=== PATIENT | female | born 1960 | race Two or more races ===

== ENCOUNTER 2016-09-19 15:50 | Inpatient (IN) | payer SELFPAY ==
--- NOTE | 2016-09-20 01:21 | ER Document Report ---
ED Neuro Symptoms/Deficit <TYRELL TSANG - Last Filed: 09/20/16 05:18> - General Mode of Arrival: Ambulatory Information source: Patient, Relative, [facility] Records Notes: 55-year-old female patient comes emergency room complaining of right facial weakness, right upper extremity weakness, to the right face and right arm, and slurred speech which began sometime 11 AM and 12 noon today. Significant other reports he came home and saw her between 1:45 PM and 2 PM with the same symptoms. He gave her an aspirin to take, he had to open the bottle for her due to her right upper extremity right hand weakness. He also had open a bottle of water for her for the same reason. He then "told her to lay down, be still, and rest". He reports about an hour later she still complained of to her right arm and right face, right arm was weak and speech was slurred. He then decided to bring her to the emergency room. History significant for a stroke 5 years ago when she reports being hospitalized at the [facility] for 8 days. She does have a history of high blood pressure. She states she had a "light heart attack" in the past. She does not have a primary care provider. She does not take any medication except aspirin. She does smokes one half pack per day. She was first seen when she returned from the CT scanner. At that time her neurological exam showed some right upper extremity weakness, right facial weakness, and slurred speech. Her significant other reports it is unchanged from what he witnessed earlier at home. I was told that her symptoms completely resolved while she was in the CT scanner. I had the tech, look at the patient with me to see how she was looking when I examined her. When I returned to the room with the tech, her symptoms had again almost completely cleared with little to no facial weakness, speech not slurred, and right upper extremity strength almost back to normal. I discussed her case with the neurologist director medical economics at [facility]. He felt that given the waxing and waning of her symptoms, the time of onset, and the persistent though improved weakness in the right upper extremity that she had most likely had a stroke but should not receive TPA at this point. He did recommend that an MRI/MRA be done prior to deciding about starting heparin. Initial call to the hospitalist was made at 1820, I was informed they were not taking calls until the new shift started about 0. Initially the patient was resistant to MRI due to claustrophobia, we finally convinced her to have this done. When she arrived back from MRI about 12:20 AM , I found that her symptoms had returned to what I found when I first examined her many hours earlier. This H&P is being done in the electronic record several hours after the patient was seen due to the computer system being down and having to work with paper charts. <JOAN BARRON - Last Filed: 09/21/16 17:27> - General Chief Complaint: S/S of Possible Stroke Time Seen by Provider: 09/20/16 00:31 - Related Data Allergies/Adverse Reactions: No Known Allergies Allergy (Verified 04/16/12 20:33) Home Medications: Current Home Medications Aspirin [Faustino Chewable Aspirin] 81 mg PO DAILY 09/20/16 [History] Past Medical History - General Information source: Patient, [facility] Records - Social History Smoking Status: Current Every Day Smoker Cigarette use (# per day): Yes - 1/2 PPD Chew tobacco use (# tins/day): No Smoking Education Provided: No Frequency of alcohol use: None Drug Abuse: None Lives with: Friend Family History: Reviewed & Not Pertinent - Past Medical History Cardiac Medical History: Reports: Hx Heart Attack - 2011, Hx Hypertension Pulmonary Medical History: Reports: None EENT Medical History: Reports: None Neurological Medical History: Reports: Hx Cerebrovascular Accident - 2011 Endocrine Medical History: Reports: None Renal/ Medical History: Reports: None GI Medical History: Reports: None Musculoskeltal Medical History: Reports None Skin Medical History: Reports None Psychiatric Medical History: Reports: None Past Surgical History: Reports: Hx Section - Immunizations Immunizations up to date: Yes Hx Diphtheria, Pertussis, Tetanus Vaccination: No <JOAN BARRON - Last Filed: 09/21/16 17:27> Review of Systems - Review of Systems Constitutional: No symptoms reported EENT: No symptoms reported Cardiovascular: No symptoms reported Respiratory: No symptoms reported Gastrointestinal: No symptoms reported Genitourinary: No symptoms reported Female Genitourinary: Post menopausal Musculoskeletal: No symptoms reported Skin: No symptoms reported Hematologic/Lymphatic: No symptoms reported Neurological/Psychological: See HPI <JOAN BARRON - Last Filed: 09/21/16 17:27> Physical Exam - Vital signs Vitals: Pulse Resp BP Pulse Ox 78 18 141/80 H 98 09/20/16 01:43 09/20/16 01:43 09/20/16 01:43 09/20/16 01:43 <TYRELL TSANG - Last Filed: 09/20/16 05:18> - Vital signs Interpretation: Hypertensive - General General appearance: Alert In distress: None - HEENT Head: Normocephalic, Atraumatic Eyes: Normal Pupils: PERRL Mucous membranes: Normal Neck: Normal. No: Carotid bruit - Respiratory Respiratory status: No respiratory distress Breath sounds: Normal - Cardiovascular Rhythm: Regular Heart sounds: Normal auscultation Murmur: No - Abdominal Inspection: Normal Bowel sounds: Normal Tenderness: Nontender - Back Back: Normal - Extremities General upper extremity: Normal inspection General lower extremity: Normal inspection - Neurological Neuro grossly intact: No Cognition: Normal Orientation: AAOx4 Cranial nerves: Facial palsy. No: Gaze palsy, Sensory deficit Cerebellar coordination: Heel-madrigal - Normal bilateral, Other - Slight difficulty in finger to nose on the right hand Motor strength normal: LUE, LLE, RLE. No: RUE Additional motor exam normals: Weakness - There is a 3/4 weakness in the RUE Babinski reflex: Normal (flexor plantar) Sensory: Normal - Psychological Associated symptoms: Normal affect, Normal mood - Skin Skin Temperature: Warm Skin Moisture: Dry Skin Color: Normal <JOAN BARRON - Last Filed: 09/21/16 17:27> Course - Re-evaluation Re-evalutation: 09/20/16 05:[address] Oconnor. He will admit the patient as a full admission to telemetry. - Vital Signs Vital signs: Temp Pulse Resp BP Pulse Ox 98.6 F 64 14 134/94 H 94 09/20/16 02:02 09/20/16 02:02 09/20/16 02:02 09/20/16 02:02 09/20/16 02:02 - Laboratory Result Diagrams: 09/19/16 16:20 09/19/16 16:20 <TYRELL TSANG - Last Filed: 09/20/16 05:18> - Re-evaluation Re-evalutation: 09/20/16 01:[address] [facility]. At this time I am waiting for the hospitalist to call back about admission. The patient continues to have the right facial weakness, slightly slurred speech, and right upper extremity weakness. - Laboratory Result Diagrams: 09/21/16 08:40 09/20/16 11:24 - Diagnostic Test Radiology reviewed: Reports reviewed - CT scan nothing acute. MRA/[place] of [place] is unremarkable. MRI of the brain shows small to moderate subacute ischemia of the left posterior parietal lobe with an underlying chronic component. This is located adjacent to an area of encephalomalacia prior CVA - EKG Interpretation by Md EKG shows normal: Sinus rhythm, [place], QRS Complexes. abnormal: Intervals - Borderline prolonged QT and, ST-T Waves - ST elevation due to LVH Rate: Normal - 97 Rhythm: NSR Voltage: Consistant with LVH Heart block present: 1st Degree When compared to previous EKG there are: Previous EKG unavailable - Transfer of Care Care transferred to following provider: Dr. Tsang Notes: 09/20/16 02:[address] Oconnor to call back to accept and manage the pt. <JOAN BARRON - Last Filed: 09/21/16 17:27> Critical Care Note - Critical Care Note Total time excluding time spent on procedures (mins): 65 <JOAN BARRON - Last Filed: 09/21/16 17:27> ED Alteplase Inc/Exc Criteria - Inclusion Criteria: 1: Patient presented to ED within 3 hours of acute ischemic stroke symptom onset ? -: No 2: Did baseline CT exclude intracranial hemorrhage and/or other risk factors? 3: Is the age of the patient 18 years of age or greater? : If any of the above questions are answered "NO" then stop, patient is not a candidate for Alteplase, : If all of the above questions are answered "YES" then continue with Exclusion Criteria. - Exclusion Criteria: 1: Is there evidence of intracranial hemorrhage on baseline CT? 2: Is there suspicion of subarachnoid hemorrhage (even if CT negative)? 3: Is there a history of serious head trauma, recent previous stroke or [place] within 3 months? 4: Does the patient have a clinical presentation consistent with [place] or post-[place] pericarditis? 5: Is there history of intracranial hemorrhage? 6: On repeated measurement is Systolic BP greater than 185mmHg or Diastolic BP greater that 110 mmHg and is aggressive treatment needed to reduce blood pressure to these limits (e.g. constant infusion of an anti-hypertensive)? 7: Did the patient awake with stroke symptoms? 8: Has the patient had a lumbar puncture or an arterial puncture at a non- compressile site within 7 days? 9: With in the last 14 days did the patient have surgery or major trauma? 10: Is the patient or less than 2 weeks? 11: Was there any active bleeding or acute trauma? 12: Does the patient have intracranial neoplasm, arteriovenous malformation or aneurysm? 13: Does the patient have abnormal glucose (less than 50 or greater than 400mg/ dl)? Record glucose in Comment. 14: Patient has rapidly improving symptoms at the time Alteplase is to be Administered. -: Yes 15: Does the patient have any risks for bleeding, including but not limited to: a.: Current use of Coumadin with PT greater than 15 seconds or INR greater than 1.7. b.: Current use of Pradaxa (Dabigatran). c.: Heparin administereed within the past 48 hours and PTT elevated. d.: Platelet count less than 100,000/mm. e.: Major surgery or serious trauma within 14 days. f.: Gastrointestinal or gynecological urinary bleeding within 14 days. g.: Myocardial Infarction ([place]) within 3 months. : If the answer to any of the above questions is "YES" then stop, the patient is not a candidate for Alteplase. : If the answer to all of the above questions is "NO" then the patient may be eligible for the Administration of Alteplase. : If the patient is noted to have seizure activity at onset of Stroke symptoms; Consult Neurologist for further evaluation. - Diagnosis of TIA: -: Patient presented with transient symptoms that are now resolved and no other neurologic findings are currently present. List symptoms in comments. -: No -: Patient is NOT a candidate for tPA. -: Yes -: ____(put name in comment) has been consulted for admission and continued evaluation of risk factor assessment. Comment: Dr. Oconnor <JOAN BARRON - Last Filed: 09/21/16 17:27> ED NIH Stroke Scale - NIH Stroke Scale *: 1. NIH scale should be completed with appropriate accompanying assessment tools. *: 2. The NIH should reflect what the patient is capable of doing and should not be coached by the clinician. 1a. Level of Consciousness: 0=Alert;keenly responsive -: 1=Drowsy -: 2=Obtunded -: 3=Coma/unresponsive or reflex to noxious stimuli. 1a. Responses: 0 1b. Orientation Questions: a. What month is it? -: b. How old are you? -: 0=Answers both questions correctly. -: 1=Answers one question correctly or patient is intubated or has orotracheal trauma. -: 2=Answers neither question correctly. 1b. Responses: 0 1c. Response to commands: a. Open and close eyes? -: b. Soft Work Wrapper Layer And Examiner and release hand? -: Credit is given despite weakness. Demonstration of task is permitted. Substitute command if hands cannot be used. -: 0=Performs both tasks correctly -: 1=Performs one task correctly -: 2=Performs neither task correctly 1c. Responses: 0 2. Gaze: Establish eye contact and instruct patient to "Follow my finger" -: 0=Normal -: 1=Partial gaze palsy. Gaze is abnormal in one or both eyes, but where forced deviation or total gaze paresis is not present. -: 2=Forced deviation or total gaze paresis. 2. Responses: 0 3. Visual Weber: Sees fingers in all four quadrants. -: 0=No visual loss. -: 1=Partial hemianopsia. -: 2=Complete hemianopsia. -: 3=Bilateral hemianopsia (including Cortical blindness) 3. Responses: 0 4. Facial Movement: Instruct patient to: -: a. Show me your teeth -: b. Raise your eyebrows -: c. Close your eyes -: d. Smile -: 0=Normal symmetrical movement -: 1=Minor paralysis (flattened nasolabial fold, asymmetry on smiling). -: 2=Partial paralysis (total or near total paralysis of lower face). -: 3=Complete paralysis of upper and lower face 4. Responses: 1 5. Motor functions (left arm): Alternate sides and extend each arm with palms down (90 degrees if sitting or 45 degrees for supine). -: 0=No drift;limb holds for full 10 seconds. -: 1=Drift; limb holds but drifts down before full 10 seconds, but does not hit bed. -: 2=Some effort against gravity; limb cannot get to or maintain position. -: 3=No effort against gravity; limb falls. -: 4=No movement. -: UN=Amputation, joint fusion, explain in comments. 5. Responses (left arm): 0 5. Motor Functions (right arm): Alternate sides and extend each arm with palms down (90 degrees if sitting or 45 degrees for supine). -: 0=No drift;limb holds for full 10 seconds. -: 1=Drift; limb holds but drifts down before full 10 seconds, but does not hit bed. -: 2=Some effort against gravity; limb cannot get to or maintain position. -: 3=No effort against gravity; limb falls. -: 4=No movement. -: UN=Amputation, joint fusion, explain in comments. 5. Responses (right arm): 1 6. Motor Functions (left leg): With patient lying supine, alternate sides and extend each leg (30 degrees always while supine). -: 0=No drift, leg holds position for full 5 seconds -: 1=Drift; leg falls before full 5 seconds but does not hit bed. -: 2=Some effort against gravity, leg falls to bed but some effort against gravity. -: 3=No effort against gravity, leg falls to bed immediately. -: 4=No movement. -: UN=Amputation, joint fusion; explain in comments. 6. Responses (left leg): 0 6. Motor Functions (right leg): With patient lying supine, alternate sides and extend each leg (30 degrees always while supine). -: 0=No drift, leg holds position for full 5 seconds -: 1=Drift; leg falls before full 5 seconds but does not hit bed. -: 2=Some effort against gravity, leg falls to bed but some effort against gravity. -: 3=No effort against gravity, leg falls to bed immediately. -: 4=No movement. -: UN=Amputation, joint fusion; explain in comments. 6. Responses (right leg): 0 7. Limb Ataxia: With eyes open instruct patient to: -: a. "Touch your finger to your nose". -: b. "Touch your heel to your madrigal" -: 0=Absent -: 1=Present in one limb. -: 2=Present in two limbs. -: UN=Amputation or joint fusion; explain in comments. 7. Responses: 1 7. If ataxia present choose as appropriate: Right arm 8. Sensory: Test sensation using pinprick or noxious stimuli. Test as many body parts as possible. -: 0=Normal;no sensory loss -: 1=Mile to moderate sensory loss (patient feels pin prick but is less sharp on affected side). -: 2=Severe or total sensory loss. 8. Responses: 0 9. Best Language: Instruct patient to: -: a. "Describe what you see in this picture." -: b. "Name the items in this picture." -: c. "Read these sentences." -: 0=No aphasia, normal -: 1=Mild to moderate aphasia. -: 2=Severe aphasia -: 3=Mute, global aphasia, no usable speech or auditory comprehension. 9. Responses: 0 10. Articulation, Dysarthia: Instruct patient to: -: "Read these words" or "Repeat these words" -: 0=Normal -: 1=Mild to moderate; patient may slur some words but can be understood without difficulty. -: 2=Severe; patients speech so slurred as to be unintelligible in the absence of dysphasia. -: UN=Intubated or other physical barrier, explain in comments. 10. Responses: 0 11. Extinction or inattention: 0=No abnormality -: 1= Visual, tactile, auditory, spatial, or personal inattention or extinction to bilateral simulation in one or the sensory modalities. -: 2=Profound violet-inattention or violet-inattention to more than one modality; does not recognize own hand. 11. Responses: 0 Total Score: 3 <JOAN BARRON - Last Filed: 09/21/16 17:27> Discharge - Discharge Admitting Provider: Dr. Oconnor Unit Admitted: Telemetry <TYRELL TSANG - Last Filed: 09/20/16 05:18> <JOAN BARRON - Last Filed: 09/21/16 17:27> - Discharge Clinical Impression: Acute cerebrovascular accident (CVA) Condition: Stable Disposition: ADMITTED INPATIENT
[2016-09-20] MEDS ORDERED: DEXTROSE 50%-WATER 25 GM/50 ML DISP.SYRIN IV PRN ×2 (07:31)
[2016-09-20] MEDS ORDERED: DEXTROSE 40% GEL 15 GM TUBE PO PRN ×2 (07:31)
[2016-09-20] MEDS ORDERED: GLUCAGON,HUMAN RECOMB 1 MG INJ SUBCUT PRN (07:31)
[2016-09-20] MEDS ORDERED: ACETAMINOPHEN 650 MG SUPP.RECT PR PRN (08:14)
[2016-09-20] MEDS ORDERED: NORMAL SALINE 1000 ML 1,000 ML IV PRN ×2 (08:14→13:25)
--- NOTE | 2016-09-20 08:55 | PDOC H&P ---
History of Present Illness Admission Date/PCP: 09/20/16 06:00 PCP None Patient complains of: stroke symptoms History of Present Illness: KIM CARLSON is a 55 year old [place] female with underlying hypertension, half pack a day smoking, anxiety, history of a "slight" myocardial infarction in the past, along with history of a stroke 5 years ago that temporarily left her with right-sided symptoms, which have since resolved, who presents to the emergency room for evaluation of above complaints. Patient has been discussed with emergency room physician who evaluated the patient, along with the emergency room physician who accepted the patient, with the initial evaluating emergency room physician having finished his shift. Around noon on the , patient began experiencing right facial and upper and lower extremity weakness, along with paresthesias of the same areas, and slurred speech. Symptoms persisted through the early afternoon, reportedly confirmed by a "significant other," according to the emergency room physician notes. She was given an aspirin and told to take a drink of water and lay down and rest. When she arose 1 hour later with similar symptoms, she was taken to the emergency room. Patient reportedly has had waxing and waning symptoms over the next several hours, with initial emergency room physician discussion concerning the patient by phone with the on-call neurologist at [facility]. Initial thoughts were to heparinize the patient, but decision was eventually made not to proceed with this. She is currently resting quietly, still complaining of some right sided numbness , tingling, and weakness. She did experience one episode of nausea and vomiting shortly after arrival in the emergency room, but none since then. She denies headache chest or abdominal pain, diarrhea or dysuria, fever or chills. No history of seizure. Laboratory results are pending due to computer system at our facility being down for an extended period of time yesterday. X-ray summary results are listed below, with full report(s) reviewed. EKG reviewed. No prior tracing available for comparison. Social history/personal habits: Single. Lives alone. Has children. Half pack of cigarettes per day. 2-3 beers a day. No illicit drug use. NKDA. Home medications initially autopopulated into [employer] may not accurately reflect patient's true medications, dosages, and/or frequencies. Patient states she only takes a baby aspirin daily. No other medications. REVIEW OF SYSTEMS: Constitutional: No fever or chills. Eyes: Wears glasses. ENT: No swallowing problems or complaints. No hearing problems or complaints. Pulmonary: No current complaints. Cardiovascular: No current complaints, including chest pain. Gastrointestinal: See history and present illness. Skin: No current complaints, including rashes. Hematologic: No unusual easy bruising or bleeding. Neurologic: See history and present illness. Musculoskeletal: No current complaints, including painful joints. Psychiatric: Mild Anxiety. Endocrine: No current complaints, including polyuria. Genitourinary: No current complaints, including dysuria. 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 5 feet 2 inches tall. Weight is not recorded on the chart. Temperature 98.6. Pulse 86 and regular. Blood pressure 139/99. 97% saturation on room air. Respirations are 24 and unlabored. Slightly overweight otherwise well-nourished well-developed -[place] female appearing approximately her stated age. Initially asleep, but awakens easily. Cooperative. Mildly anxious. No agitation. Skin is warm and dry. No grossly obvious evidence of rash in areas of skin examined. No subcutaneous nodules palpated. ENT: Hearing grossly normal to normal conversation. Tongue midline on protrusion pink and slightly moist. Eyes: No scleral icterus. Pupils equal and reactive to light at 4 mm. [place] conjunctivae. Neck is supple and nontender to gentle active range of motion and palpation. Midline trachea. No palpable thyroid nodule mass enlargement or tenderness. Lymphatic: No palpable cervical or clavicular nodes. Neck and lymphatic exams limited by patient body habitus. Psychiatric: Reasonable insight into acute and chronic medical issues. Oriented to time location and why here. Lungs: Auscultation reveals clear and equal breath sounds bilaterally. No use of accessory respiratory muscles. Cardiovascular: Heart regular rate and rhythm, without gallop murmur or rub. No carotid or abdominal aortic bruits. No ankle or pedal edema. Faintly palpable dorsalis pedis pulses. Abdomen: soft, slightly obese, nontender with positive bowel sounds. Unable to adequately evaluate abdomen for masses or organomegaly due to body habitus. Extremities: Feet are warm and dry. No calf tenderness to compression. No grossly obvious visual evidence of calf swelling. Gentle manipulation of lower extremities fails to reveal any obvious evidence of injury or instability to knees hips or ankles. Neurologic: Cranial Nerves II through XII are grossly intact, with the exception of mild right facial droop, noticeable particularly when she smiles. Mild dysarthria.. Light touch intact at left face, upper and lower extremities ; decreased on the right side of her face, upper and lower extremities. Motor function of major muscle groups left upper and lower extremities 5 over 5; subtle weakness present on the right, but still noticeable, when compared to similar muscle groups on the left. Patellar reflexes absent. Absent Babinski. Past Medical History Cardiac Medical History: Reports: Myocardial Infarction - 2011, Hypertension Denies: Congestive Heart Failure, DVT, Hyperlipidema, Pulmonary Embolism Pulmonary Medical History: Reports: None Denies: Asthma, Chronic Obstructive Pulmonary Disease (COPD), Tuberculosis EENT Medical History: Reports: None, Eyes - Reading glasses Denies: Ears, Throat Neurological Medical History: Reports: Ischemic CVA - 2011, without residual after effects. Denies: Hemorrhagic CVA, Seizures Endocrine Medical History: Denies: Diabetes Mellitus Type 1, Diabetes Mellitus Type 2, Hyperthyroidism, Hypothyroidism Renal/ Medical History: Reports: None GI Medical History: Denies: Cirrhosis, Gastroesophageal Reflux Disease, Hepatitis, Peptic Ulcer Disease Musculoskeltal Medical History: Denies: Arthritis Skin Medical History: Denies: Eczema, Psoriasis Psychiatric Medical History: Reports: Alcohol Dependency - 2-3 beers a day., General Anxiety Disorder, Tobacco Dependency Denies: Depression, Substance Abuse Hematology: Reports: None Infectious Medical History: Denies: Hepatitis B, Hepatitis C Past Surgical History Past Surgical History: Reports: Section Social History Information Source: Patient, Emergency Med Personnel, [facility] Records Lives with: Alone Smoking Status: Current Every Day Smoker Frequency of Alcohol Use: Social Hx Recreational Drug Use: No Drugs: None Hx Prescription Drug Abuse: No - Advance Directive Resuscitation Status: Full Code Surrogate healthcare decision maker:: Her children Family History Family History: Reviewed & Not Pertinent Parental Family History Reviewed: Yes - Uncertain cause of father's ; mother of hypertension. Children Family History Reviewed: Yes - Healthy Sibling(s) Family History Reviewed.: Yes - Healthy Medication/Allergy Home Medications: Aspirin [Faustino Chewable Aspirin] 81 mg PO DAILY 09/20/16 Allergies/Adverse Reactions: No Known Allergies Allergy (Verified 04/16/12 20:33) Physical Exam Vital Signs: Temp Pulse Resp BP Pulse Ox 98.2 F 71 20 139/92 H 95 09/20/16 07:14 09/20/16 07:14 09/20/16 07:14 09/20/16 07:14 09/20/16 07:14 Results Impressions: Brain MRI with MRA 09/19/16 00:00 IMPRESSION: NORMAL MRA OF THE [place]. Chest X-Ray 09/19/16 00:00 IMPRESSION: Stable moderate cardiac silhouette enlargement. Head MRI 09/19/16 00:00 IMPRESSION: Small to moderate subacute ischemia of the left posterior parietal lobe, with underlying chronic component. Assessment & Plan - Diagnosis (1) Acute cerebrovascular accident (CVA) Is this a current diagnosis for this admission?: YesPlan: Patient will be admitted under CVA/TIA protocol. Multiple imaging procedures, intracranial, vascular, and cardiac. lipid panel. Permissive hypertension. Patient is a full code. I have strongly urged patient not to get out of bed without calling nursing staff, to avoid a fall with injury. Knee high SCDs for DVT prophylaxis, along with subcutaneous heparin. Impression and plans were discussed with patient, who concurs. Time spent in evaluation and management of patient: 64 minutes (2) Arm paresthesia, right Is this a current diagnosis for this admission?: Yes (3) Dysarthria Is this a current diagnosis for this admission?: Yes (4) Facial droop Is this a current diagnosis for this admission?: Yes (5) Right hemiparesis Is this a current diagnosis for this admission?: Yes (6) Right leg paresthesias Is this a current diagnosis for this admission?: Yes (7) HTN (hypertension) Qualifiers: Hypertension type: essential hypertension Qualified Code(s): I10 - Essential (primary) hypertension Is this a current diagnosis for this admission?: YesPlan: Permissive hypertension. - Inpatient Certification Based on my medical assessment, after consideration of the patient's comorbidities, presenting symptoms, or acuity I expect that the services needed warrant INPATIENT care.: Yes I certify that my determination is in accordance with my understanding of Medicare's requirements for reasonable and necessary INPATIENT services [42 CFR 412.3e].: Yes Medical Necessity: Need Close Monitoring Due to Risk of Patient Decompensation, Need For Continuous Telemetry Monitoring, Need for Neurological Checks, Risk of Complication if Not Cared For in Hospital Post Hospital Care: D/C or Transfer Summary
[2016-09-20 09:36] LABS: BLOOD UREA NITROGEN 10 mg/dL (7-20); CALCIUM 10.4 mg/dL (8.4-10.2); CREATININE RESULT 0.67 mg/dL (0.52-1.25); GLUCOSE 84 mg/dL (75-110)
[2016-09-20 09:37] LABS: ANION GAP 11 (5-19); CARBON DIOXIDE 19 mmol/L (22-30); CHLORIDE 110 mmol/L (98-107); POTASSIUM 4.1 mmol/L (3.6-5.0); SODIUM 140.3 mmol/L (137-145)
[2016-09-20 09:38] LABS: ALANINE AMINOTRANSFERASE 16 U/L (9-52); ALKALINE PHOSPHATASE 99 U/L (38-126); ASPARTATE AMINO TRANSFERASE 22 U/L (14-36); BILIRUBIN,DIRECT 0.6 mg/dL (0.0-0.4); BILIRUBIN,TOTAL 1.3 mg/dL (0.2-1.3)
[2016-09-20 09:39] LABS: CREATINE KINASE 59 U/L (30-135); TOTAL PROTEIN 7.3 g/dL (6.3-8.2)
[2016-09-20 09:40] LABS: CREATINE KINASE MB 0.39 ng/mL (<4.55)
[2016-09-20 09:43] LABS: TROPONIN I 0.04 ng/mL
[2016-09-20 09:47] LABS: PARTIAL THROMBOPLASTIN TIME 31.1 SEC (23.5-35.8)
[2016-09-20 09:49] LABS: ABSOLUTE EOSINOPHILS # (AUTO) 0.1 10^3/uL (0.0-0.6); ABSOLUTE LYMPHOCYTES (AUTO) 1.7 10^3/uL (0.5-4.7); ABSOLUTE MONOCYTES (AUTO) 0.5 10^3/uL (0.1-1.4); ABSOLUTE NEUT (AUTO) 1.9 10^3/uL (1.7-8.2); BASOPHILS % (AUTO) 0.9 % (0-2); EOSINOPHILS % (AUTO) 1.4 % (0-6); HEMATOCRIT 53.7 % (36.0-47.0); HEMOGLOBIN 17.1 g/dL (12.0-15.5); HGB HCT DIFFERENCE -2.4; LYMPHOCYTES % (AUTO) 40.2 % (13-45); MEAN CORPUSCULAR HEMOGLOBIN 27.2 pg (27.0-33.4); MEAN CORPUSCULAR HGB CONC 31.9 g/dL (32.0-36.0); MEAN CORPUSCULAR VOLUME 85 fl (80-97); MONOCYTES % (AUTO) 11.1 % (3-13); RED CELL DISTRIBUTION WIDTH 16.2 % (11.5-14.0); SEGMENTED NEUTROPHILS % (AUTO) 46.4 % (42-78); WHITE BLOOD COUNT 4.1 10^3/uL (4.0-10.5)
[2016-09-20] MEDS ORDERED: ASPIRIN 300 MG SUPP, RECTAL PR SCH (10:00)
[2016-09-20] MEDS ORDERED: ASPIRIN 81 MG TABLET, CHEWABLE PO SCH ×2 (10:00)
[2016-09-20] MEDS: ASPIRIN 325 MG TABLET PO SCH (10:21)
[2016-09-20] MEDS: HEPARIN SOD (PORCINE) 5,000 UNIT/ML 1 ML SYRINGE SUBCUT SCH ×2 (10:22→22:09)
--- NOTE | 2016-09-20 10:34 | EKG REPORT ---
SEVERITY:- ABNORMAL ECG - SINUS RHYTHM LEFT VENTRICULAR HYPERTROPHY NONSPECIFIC T ABNORMALITIES, INFERIOR LEADS BORDERLINE PROLONGED QT INTERVAL : Confirmed by: Anna Christy MD 20-Sep-2016 10:33:50
--- NOTE | 2016-09-20 10:35 | EKG REPORT ---
SEVERITY:- ABNORMAL ECG - SINUS RHYTHM VENTRICULAR PREMATURE COMPLEX FIRST DEGREE AV BLOCK LEFT VENTRICULAR HYPERTROPHY ANTERIOR ST ELEVATION, PROBABLY DUE TO LVH BORDERLINE PROLONGED QT INTERVAL : Confirmed by: Anna Christy MD 20-Sep-2016 10:33:59
[2016-09-20 12:00] LABS: PROTHROMBIN TIME 12.7 SEC (11.4-15.4)
[2016-09-20 12:01] LABS: PARTIAL THROMBOPLASTIN TIME 32.3 SEC (23.5-35.8)
[2016-09-20 12:05] LABS: ALANINE AMINOTRANSFERASE 21 U/L (9-52); ALBUMIN 4.1 g/dL (3.5-5.0); ALKALINE PHOSPHATASE 109 U/L (38-126); ANION GAP 13 (5-19); ASPARTATE AMINO TRANSFERASE 22 U/L (14-36); BILIRUBIN,DIRECT 0.3 mg/dL (0.0-0.4); BILIRUBIN,TOTAL 1.7 mg/dL (0.2-1.3); BLOOD UREA NITROGEN 9 mg/dL (7-20); CALCIUM 10.5 mg/dL (8.4-10.2); CARBON DIOXIDE 19 mmol/L (22-30); CHLORIDE 109 mmol/L (98-107); CHOLESTEROL 263.13 mg/dL (0-200); CREATININE RESULT 0.66 mg/dL (0.52-1.25); Direct HDL 90 mg/dL (>40); GLUCOSE 134 mg/dL (75-110); POTASSIUM 3.9 mmol/L (3.6-5.0); SODIUM 141.3 mmol/L (137-145); TOTAL PROTEIN 7.4 g/dL (6.3-8.2); TRIGLYCERIDES 84 mg/dL (<150)
[2016-09-20 12:11] LABS: ABSOLUTE BASOPHILS # (AUTO) 0.1 10^3/uL (0.0-0.2); ABSOLUTE EOSINOPHILS # (AUTO) 0.1 10^3/uL (0.0-0.6); ABSOLUTE LYMPHOCYTES (AUTO) 1.6 10^3/uL (0.5-4.7); ABSOLUTE MONOCYTES (AUTO) 0.3 10^3/uL (0.1-1.4); ABSOLUTE NEUT (AUTO) 1.9 10^3/uL (1.7-8.2); BASOPHILS % (AUTO) 1.6 % (0-2); EOSINOPHILS % (AUTO) 1.8 % (0-6); HEMOGLOBIN 18.1 g/dL (12.0-15.5); HGB HCT DIFFERENCE -1.7; LYMPHOCYTES % (AUTO) 41.4 % (13-45); MEAN CORPUSCULAR HEMOGLOBIN 27.4 pg (27.0-33.4); MEAN CORPUSCULAR HGB CONC 32.3 g/dL (32.0-36.0); MEAN CORPUSCULAR VOLUME 85 fl (80-97); MONOCYTES % (AUTO) 6.4 % (3-13); RED CELL DISTRIBUTION WIDTH 16.1 % (11.5-14.0); SEGMENTED NEUTROPHILS % (AUTO) 48.8 % (42-78)
[2016-09-20 12:16] LABS: DIRECT LDL 142 mg/dL (<100)
--- NOTE | 2016-09-20 16:38 | XCELERA REPORT ---
[address] [address] Transthoracic Echocardiogram Report Name: KIM ARRIAZA Age: 55 yrs Gender: Female : 1960 Patient Status: Inpatient Patient Location: \S\12\S\A Study Date: 09/20/2016 02:11 PM Height: 62 in Weight: 150 lb BSA: 1.7 m2 Procedure: A complete two-dimensional transthoracic echocardiogram was performed (2D, M-mode, spectral and color flow Doppler). The study was technically adequate with some images being suboptimal in quality. Reason For Study: RESULTS TO DAY HOSPITALIST Ordering Physician: KATHERINE MELISSA Performed By: Jeffry Rubalcava Interpretation Summary Left ventricular systolic function is severely reduced. The Ejection Fraction estimate is 20-25% Doppler measurements suggest pseudonormalized left ventricular relaxation, which is associated with grade II/IV or mild to moderate diastolic dysfunction There is borderline concentric left ventricular hypertrophy. The left ventricle is mildly dilated. There is severe global hypokinesis of the left ventricle. The right ventricular systolic function is normal. The left atrial size is normal. The right atrium is normal in size There is no mitral valve stenosis. There is a mild amount of mitral regurgitation No aortic regurgitation is present. There is no aortic valve stenosis There is a mild amount of tricuspid regurgitation There is moderate pulmonary hypertension by echo Right ventricular systolic pressure is estimated to be elevated at 40- 50mmHg. The aortic root is not well visualized. The inferior vena cava appeared normal and decreased > 50% with respiration (RAP 5-10 mmHg) There is no pericardial effusion. Consider TED if clinically indicated. May consider mobile cardiac telemetry monitoring (MCT) for ruling out transient AFIB. MMode/2D Measurements \T\ Calculations RVDd: 1.8 cm LVIDd: 5.9 cm FS: 5.4 % Ao root diam: IVSd: 0.83 cm LVIDs: 5.6 cm EDV(Teich): 2.7 cm LVPWd: 0.94 cm 172.8 ml Ao root area: ESV(Teich): 152.2 ml 5.6 cm2 EF(Teich): 11.9 % LA dimension: 3.2 cm LVLd ap4: 8.4 cm SV(MOD-sp4): EDV(MOD-sp4): 22.0 ml 186.0 ml LVLs ap4: 7.7 cm ESV(MOD-sp4): 164.0 ml EF(MOD-sp4): 11.8 % Doppler Measurements \T\ Calculations MV E max elena: MV P1/2t max elena: Ao V2 max: LV V1 max P.0 cm/sec 36.2 cm/sec 90.6 cm/sec 1.8 mmHg MV A max elena: MV P1/2t: 56.1 msec Ao max PG: LV V1 max: 54.8 cm/sec MVA(P1/2t): 3.9 cm2 3.3 mmHg 67.5 cm/sec MV E/A: 0.68 MV dec slope: 188.9 cm/sec2 PA V2 max: PI end-d elena: TR max elena: RAP systole: 58.2 cm/sec 127.6 cm/sec 261.0 cm/sec 10.0 mmHg PA max PG: TR max P.4 mmHg 27.6 mmHg RVSP(TR): 37.6 mmHg Left Ventricle The left ventricle is mildly dilated. There is borderline concentric left ventricular hypertrophy. Left ventricular systolic function is severely reduced. The Ejection Fraction estimate is 20-25%. Doppler measurements suggest pseudonormalized left ventricular relaxation, which is associated with grade II/IV or mild to moderate diastolic dysfunction. There is severe global hypokinesis of the left ventricle. Right Ventricle The right ventricle is grossly normal size. There is normal right ventricular wall thickness. The right ventricular systolic function is normal. Atria The right atrium is normal in size. The left atrial size is normal. Interarterial septum not well visualized and not well dopplered. Cannot comment on ASD/PFO presence. Mitral Valve The mitral valve leaflets are sclerotic, but show no functional abnormalities. There is no mitral valve stenosis. There is a mild amount of mitral regurgitation. Aortic Valve The aortic valve is grossly normal. There is no aortic valve stenosis. No aortic regurgitation is present. Tricuspid Valve The tricuspid valve is not well visualized secondary to technical limitations. There is no tricuspid stenosis. There is a mild amount of tricuspid regurgitation. There is moderate pulmonary hypertension by echo. Right ventricular systolic pressure is estimated to be elevated at 40- 50mmHg. Pulmonic Valve The pulmonic valve is not well visualized. Great Vessels The aortic root is not well visualized. The inferior vena cava appeared normal and decreased > 50% with respiration (RAP 5-10 mmHg). Effusions There is no pericardial effusion. Incidental Findings Consider TED if clinically indicated. May consider mobile cardiac telemetry monitoring (MCT) for ruling out transient AFIB. : KATHERINE MELISSA > Jennyfer Russell
[2016-09-20 16:42] LABS: AMORPHOUS SEDIMENT,URINE TRACE /HPF; APPEARANCE,URINE CLOUDY; BILIRUBIN,URINE NEGATIVE (NEGATIVE); GLUCOSE, URINE NEGATIVE (NEGATIVE); KETONES,URINE TRACE mg/dL (NEGATIVE); LEUKOCYTE ESTERASE,URINE NEGATIVE (NEGATIVE); NITRITE,URINE NEGATIVE (NEGATIVE); PROTEIN,URINE NEGATIVE (NEGATIVE); URINE SPECIFIC GRAVITY 1.017; UROBILINOGEN,URINE NEGATIVE mg/dL (<2.0)
--- NOTE | 2016-09-20 16:43 | PROGRESS NOTE E ---
Progress Note NAME: KIM ARRIAZA : 1960 AGE: 55Y DATE: 09/20/2016 ROOM: ED12 SUBJECTIVE: The patient is currently lying in bed. The patient is still having right-sided facial droop and weakness, but the patient denies any difficulty swallowing. The patient states that over the past couple of days that she has been not very thirsty and has not consumed a lot of water. The patient denies any nausea or vomiting, no diarrhea, shortness of breath, dizziness, chest pain, no fever or chills. The patient has been afebrile. Blood pressure has been in a good range, and the patient does not voice any other concerns at this time. REVIEW OF SYSTEMS: Rest of review of systems is negative. MEDICATIONS: Medications have been reviewed. OBJECTIVE: GENERAL: The patient is a 55-year-old [facility] [place] female who is awake and alert and oriented to person, place, time and situation. She is verbal and conversational and does to appear to be in any acute distress. VITAL SIGNS: Temperature is 98.2, pulse 79, respirations 22, blood pressure 119/94, oxygen saturation is 96% on room air. SKIN: Warm and dry. No rash, not diaphoretic. HEENT: Pupils are equal, round, reactive to light and accommodation. Conjunctivae pink. NECK: There is no JVD. CARDIOVASCULAR: Heart is regular. There is no murmur or rub. CHEST: Clear, symmetrical, and unlabored. ABDOMEN: Soft, nontender, nondistended. Bowel sounds are present. BACK: No CVA tenderness or sacral edema. EXTREMITIES: No clubbing, cyanosis or edema. PSYCHIATRIC: Appropriate affect, pleasant mood. No suicidal or homicidal ideation. 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 The patient does have slight right-sided facial droop. DIAGNOSTIC DATA: Lab values are as follows: Hematology obtained on 09/20/2016: WBC is 4.0, hemoglobin 19.1, hematocrit 56.0, and platelet count is 235,000. Coagulation obtained on 09/20/2016: PT is 12.7, INR is 0.93. Chemistries obtained on 09/20/2016: Sodium is 141, potassium 3.9, chloride 109, carbon dioxide 19, BUN 9, creatinine 0.66, glucose 134, calcium 10.5, magnesium is 2.0, bilirubin is 1.7, AST 22, ALT 21, alkaline phosphatase 109, triglycerides are 84, cholesterol 263, LDL 142, VLDL 17, HDL 90, TSH is 1.41. IMPRESSION AND PLAN: 1. ACUTE CVA. The patient does have clinical findings of such as well as MRI which revealed moderate subacute empyema of the left posterior parietal lobe. Will maximize the patient's aspirin therapy as well as add treatment dose statin. Currently awaiting echocardiogram as well as carotid Doppler and will follow. 2. HYPERLIPIDEMIA. Will continue statin. 3. HYPERTENSION. Will allow permissive hypertension at this time; however, the patient's blood pressures are well controlled. She is not currently on any medications but will continue to monitor this. 4. POLYCYTHEMIA. This does not appear to be severe. Uncertain if this is the patient's possible baseline. Regardless, will hydrate the patient and follow. 5. DVT PROPHYLAXIS. Will continue subcutaneous heparin as well as MAGGIE hose. DISPOSITION: The patient is a FULL CODE. Pending the patient's symptomatology and diagnostic findings, will re-evaluate in the a.m. TIME: Time spent on this followup including assessment, plan, physical examination, patient education, and family meeting, total time at the bedside is 35 minutes. DICTATING PHYSICIAN: FLIP DALEY NP [id number] PHY#: [id number] ID: [id number] JOB#: [id number] ACCT: [id number] cc: > YASMIND
[2016-09-20] MEDS ORDERED: ATORVASTATIN CALCIUM 80 MG TABLET PO SCH (22:00)
[2016-09-20] MEDS ORDERED: ATORVASTATIN CALCIUM 80 MG TABLET ONE (22:15)
[2016-09-21 09:12] LABS: HEMATOCRIT 55.4 % (36.0-47.0); HEMOGLOBIN 17.3 g/dL (12.0-15.5); HGB HCT DIFFERENCE -3.5; MEAN CORPUSCULAR HEMOGLOBIN 27.5 pg (27.0-33.4); MEAN CORPUSCULAR HGB CONC 31.2 g/dL (32.0-36.0); MEAN CORPUSCULAR VOLUME 88 fl (80-97); RED CELL DISTRIBUTION WIDTH 16.2 % (11.5-14.0)
[2016-09-21 09:16] LABS: WHITE BLOOD COUNT 2.8 10^3/uL (4.0-10.5)
--- NOTE | 2016-09-21 11:32 | TRANSFER SUMMARY E ---
Transfer Summary NAME: KIM ARRIAZA : 1960 AGE: 55Y ADMITTED: 09/20/2016 TRANSFERRED: 09/21/2016 CODE STATUS: FULL CODE. PRIMARY CARE PROVIDER: Not established. RECEIVING PHYSICIAN: Dr. Buck with [facility]. TRANSFER DIAGNOSES: Includes: 1. Subacute cerebral infarction of the left posterior parietal lobe. 2. History of cerebrovascular disease with old CVA. 3. Hyperlipidemia. 4. Reported hypertension. 5. Newly diagnosed cardiomyopathy with an ejection fraction of 20%. 6. Moderate diastolic dysfunction. 7. Severe global hypokinesis of the left ventricle. 8. Moderate pulmonary hypertension. 9. Right RV pressure of 50 mmHg. HOME MEDICATIONS: None. CURRENT MEDICATIONS: Include: 1. Heparin 50 units subcu q. 12 hours. 2. Lipitor 80 mg p.o. q. hour sleep. 3. Aspirin 325 p.o. daily. DIET: Will be made n.p.o. for transfer. ACTIVITY: Will be made bed rest for her transfer. HISTORY OF PRESENT ILLNESS: The patient is a 55-year-old [place] female with a past medical history of previous cerebrovascular accident. The patient presented to the emergency department with a chief complaint of stroke-like symptoms. According to the patient, in the past the patient had a CVA which affected her right side and she had some right-sided weakness but over time this has improved, however, the patient had worsening of these symptoms with a reoccurrence and came to the emergency department for evaluation. The patient continued to have right facial numbness as well as weakness and paresthesias with some slurring of speech. The patient's symptoms reportedly waxed and waned several hours prior to presentation and the ER provider contacted the Neurologist at [facility] and felt the patient was not a candidate for any intervention at that time. The patient was referred to the hospitalist for admission and management of acute CVA. HOSPITAL COURSE: The patient was admitted to [facility]. The patient underwent MRI which confirmed a subacute CVA. The patient had carotid Doppler's which did not reveal any significant stenosis, however, the patient underwent echocardiogram and findings were consistent with decreased EF. The patient was noted to be somewhat volume overloaded and was diuresed with 40 mg of IV Lasix. The patient's further history was obtained and the patient admitted to having symptoms of what she described as "a racing heartbeat" and presyncopal symptoms. The patient denied any specific syncope however did admit to chest pressure and chest pain with these events. The patient stated they have been increasing in intensity as of recently. The patient is also noted to be improved from a neurological standpoint this morning however given the patient's new finding of decreased EF and symptoms of possible underlying arrhythmia, contacted [facility] cardiac connections for transfer for ischemic evaluation. During the patient's stay here, she has not had any evidence of V-tach of atrial fibrillation. DIAGNOSTICS: Lab values are as follows: Hematology obtained on 09/21/2016: WBCs are 10.8, hemoglobin is 17.3, hematocrit is 55.4, platelet count is 191,000. Coagulation Panel 09/20/2016: PT is 12.7, INR is 0.93. Chemistry panel 09/20/2016: Sodium is 141, potassium 3.9, chloride is 109, carbon dioxide 19, BUN 9, creatinine is 0.26, glucose 134, calcium is 12.5, magnesium is 2.0, total bilirubin is 1.7, direct bilirubin is 0.3, AST 22, ALT is 21, Alk phos 199. CK 59, CK MB 0.39, troponin is 0.040. Total protein 7.3, albumin 4.0. Triglycerides are 84, cholesterol is 263, LDL is 142, VLDL is 17, HDL is 90, TSH is 1.41. Urinalysis panel on 09/20/2016: Cloudy, yellow appearance, pH is 12.0, specific gravity 1.017, protein negative, glucose negative, ketones trace, occult blood negative, nitrite negative, negative, leukocyte esterase is negative, WBC is 2, RBC is 1, bacteria 1. Brain MRI with MRA reveals normal MRA of the [place]. Chest x-ray obtained on 09/19/2016 reveals stable moderate cardiac silhouette noted. Head MRI obtained on 09/19/2016 reveals smaller moderate subacute ischemia of the left posterior parietal lobe with underlying chronic component. Head CT obtained on 09/19/2016 reveals a large area of hypoattenuation seen near the left parietal lobe concerning for underlying subacute infarction. There is diffuse microvascular ischemic changes noted. Carotid Doppler obtained on 09/20/2016 reveals no significant hemodynamic stenosis. EKG obtained on 09/19/2016 reveals sinus rhythm with PVCs and a first degree block with anterior ST elevation which appears to be LVH. EKG obtained on 09/19/2016 reveals sinus rhythm with left ventricular hypertrophy findings. Echo obtained on 09/20/2016 reveals a decreased EF of 20 to 25% with elevated RV pressures and pulmonary hypertension. PHYSICAL EXAMINATION: GENERAL: On examination, the patient is a well-developed, well-nourished, 55-year-old [place] female who is awake, alert, and oriented to person, place, time, and situation. She has verbal conversation and does not appear to be in any acute distress. VITAL SIGNS: Temperature is 97.7, pulse 67, respirations 22, blood pressure is 145/91, oxygen saturation 100% on room air. SKIN: Warm and dry. No rash. She is not diaphoretic. HEENT: Pupils equal, round, and reactive to light and accommodation. Conjunctiva is pink. There is no JVP. CARDIOVASCULAR SYSTEM: Heart is regular. There is no murmur or rub. CHEST: Clear, symmetrical, unlabored. ABDOMEN: Soft, nontender, nondistended. BACK: No CVA tenderness or sacral edema. EXTREMITIES: No clubbing, cyanosis, edema. PSYCHIATRIC: Appropriate affect, pleasant mood. TRANSFER PLANNIN. The patient will be received at the services of [facility] at the acceptance of Dr. Phillips. As always, I would like to thank [facility] as well as [facility] for graciously participating in the care of this patient. Time spent on this transfer including assessment, plan, physical examination, patient education, family meeting, discussion with patient's son via telephone, as well as transport arrangements is 60 minutes. DICTATING PHYSICIAN: FLIP DALEY NP [id number] PHY#: [id number] ID: [id number] JOB#: [id number] ACCT: [id number] cc:FLIP DALEY NP > [facility]
[2016-09-21 13:08] VITALS: BP 135/71
[2016-09-21] MEDS: HEPARIN SOD (PORCINE) 5,000 UNIT/ML 1 ML SYRINGE SUBCUT SCH (13:15)
[2016-09-21] MEDS: ASPIRIN 325 MG TABLET PO SCH (13:15)
== END 2016-09-21 15:43 | disposition short-term general hospital (02) | DRG 65 ==
LOC: ER 15:50 → EH 09-20 06:00 → UNDOADMIN 09-20 06:00 → EH 09-20 08:14 → 3W 09-21 02:45
PROVIDERS: ADMIT Family Medicine; ATTEND Family Medicine
DX: I63.9 Cerebral infarction, unspecified (principal); G81.91 Hemiplegia, unspecified affecting right dominant side; I10 Essential (primary) hypertension; R29.810 Facial weakness; R13.10 Dysphagia, unspecified; D75.1 Secondary polycythemia; R20.8 Other disturbances of skin sensation; E78.5 Hyperlipidemia, unspecified; R53.1 Weakness; F41.9 Anxiety disorder, unspecified; F40.240 Claustrophobia; F17.210 Nicotine dependence, cigarettes, uncomplicated; I25.2 Old myocardial infarction; Z60.2 Problems related to living alone; Z86.73 Personal history of transient ischemic attack (TIA), and cerebral infarction without residual deficits
CPT/HCPCS: 36415; 70450; 70544; 70551; 71010; 80053; 80061; 81001; 82550; 82553; 82962; 83735; 84443; 84484; 85025; 85027; 85610; 85730; 93005; 93010; 93306; 93880; 99291; J1644; J3490; J7030